=== PATIENT | male | born 1980 | race Caucasian/White ===

== ENCOUNTER 2024-03-12 16:56 | Emergency (ER) | payer MEDICAID ==
[2024-03-12] MEDS: Amoxicillin/Clavulanate K 875-125 MG Tab PO ONE (17:42)
[2024-03-12] MEDS: Acetaminophen 500 MG Tab PO ONE (17:42)
== END 2024-03-12 17:51 | disposition home or self-care (01) ==
LOC: MW.ED 16:56
DX: H66.92 Otitis media, unspecified, left ear (principal); Z88.6 Allergy status to analgesic agent
CPT/HCPCS: 99282; A9270; 99283